=== PATIENT | female | born 1990 | race Caucasian/White ===

== ENCOUNTER 2019-01-09 21:45 | Emergency (ER) | payer OTHER ==
--- NOTE | 2019-01-10 00:49 | ER Document Report ---
HPI - HPI Patient complains to provider of: rash Time Seen by Provider: 01/10/19 00:43 Pain Level: Denies Context: Patient is otherwise healthy 28-year-old female presents to the emergency department for generalized rash. Patient states she has had this rash for the last couple of days. States it initially started out on her lower extremities and has moved to her upper extremities on her fingers. Patient states she took Benadryl for this rash which helps the generalized itching and made her fall asleep. Patient's denying any respiratory distress, tightness or swelling in her throat, nausea, vomiting, diarrhea. Patient is denying any other close contacts with the same rash. Patient states she was outside doing a lot of yard work for the last couple of days. Patient's denying any medical allergies. - REPRODUCTIVE Reproductive: DENIES: : Past Medical History - General Information source: Patient - Social History Smoking Status: Never Smoker Family History: Reviewed & Not Pertinent - Past Medical History Cardiac Medical History: Denies: Hx Coronary Artery Disease, Hx Heart Attack, Hx Hypertension Pulmonary Medical History: Denies: Hx Asthma, Hx Bronchitis, Hx COPD, Hx Pneumonia Neurological Medical History: Denies: Hx Cerebrovascular Accident, Hx Seizures Musculoskeletal Medical History: Denies Hx Arthritis Past Surgical History: Reports: Hx Gynecologic Surgery - VAGINAL REPAIR. Denies: Hx Pacemaker - Immunizations Hx Diphtheria, Pertussis, Tetanus Vaccination: Yes Vertical Provider Document - CONSTITUTIONAL Agree With Documented VS: Yes Notes: GENERAL: Alert, interacts well. No acute distress. HEAD: Normocephalic, atraumatic. EYES: Pupils equal, round, and reactive to light. Extraocular movements intact. ENT: Oral mucosa moist, tongue midline. NECK: Full range of motion. Supple. Trachea midline. LUNGS: Clear to auscultation bilaterally, no wheezes, rales, or rhonchi. No respiratory distress. HEART: Regular rate and rhythm. No murmur ABDOMEN: Soft, non-tender. Non-distended. Bowel sounds present in all 4 quadrants. EXTREMITIES: Moves all 4 extremities spontaneously. No edema, normal radial and dorsalis pedis pulses bilaterally. No cyanosis. BACK: no cervical, thoracic, lumbar midline tenderness. No saddle anesthesia, normal distal neurovascular exam. NEUROLOGICAL: Alert and oriented x3. Normal speech. cranial nerves II through XII grossly intact PSYCH: Normal affect, normal mood. SKIN: Warm, dry, normal turgor. General pinpointed linear lesions noted all over patient's bilateral lower extremities, excoriated lesions noted behind patient's knees.. Also noted in the left spaces of patient's right hand. Consistent with scabies. - INFECTION CONTROL TRAVEL OUTSIDE OF THE [place] IN LAST 30 DAYS: No Course - Re-evaluation Re-evalutation: 01/10/19 00:45 Discussed with patient at length that the rash on her lower extremities and hands do appear to be scabies. Discussed use of permethrin following up with a primary care provider. Discussed the use of Benadryl for symptomatic relief. Patient voices understanding is stable for discharge. - Vital Signs Vital signs: Temp Pulse Resp BP Pulse Ox 98.0 F 56 L 16 119/73 99 01/09/19 22:06 01/09/19 22:06 01/09/19 22:06 01/09/19 22:06 01/09/19 22:06 Discharge - Discharge Clinical Impression: Scabies Condition: Stable Disposition: HOME, SELF-CARE Instructions: Scabies ([facility]) Additional Instructions: You have been seen and treated in the emergency department for scabies. As we discussed please use the medication I have prescribed at night. Please rub it all of your skin to include between your fingers and toes. Please make sure you leave it on for at least 8-12 hours. In the morning please then wash it off. You should also wash her sheets in hot water. I have given you a refill prescription. Should you need it you can use this medication again in 7 days. Please also follow-up with your primary care provider. Return to the emergency room should you have any other concerning symptoms. Prescriptions: Permethrin [Acticin 5% Cream 60 gm] 2 applic TP ONCE #4 tube Forms: Return to Work Referrals: GOLDEN JOHNSON MD [ACTIVE STAFF] - Follow up as needed
[2019-01-10 01:11] VITALS: BP 127/60
== END 2019-01-10 01:05 | disposition home or self-care (01) ==
LOC: ER 21:45
DX: B86 Scabies (principal)
CPT/HCPCS: 99282